=== PATIENT | female | born 1965 | race Caucasian/White ===

== ENCOUNTER 2017-04-22 10:30 | Emergency (ER) | payer MEDICARE, MEDICAID ==
[~2017-04-22] VITALS: Ht 167.6 cm; Wt 50.3 kg
[2017-04-22] MEDS ORDERED: SODIUM CHLORIDE 0.9% 1,000 ML IV ONE (11:14)
[2017-04-22] MEDS ORDERED: SODIUM CHLORIDE FLUSH 10ML SYR IVF ONE (11:30)
[2017-04-22] MEDS ORDERED: SODIUM CHLORIDE 0.9% 1,000ML IVBOLUS ONE (11:30)
[2017-04-22] MEDS ORDERED: ONDANSETRON 2MG/ML, 2ML IVPush ONE (11:30)
[2017-04-22] MEDS ORDERED: ONDANSETRON 2MG/ML, 2ML ONE (11:39)
[2017-04-22 12:08] LABS: BLOOD UREA NITROGEN 18 mg/dL (7-18)
[2017-04-22 12:12] LABS: ASPARTATE AMINO TRANSFERASE 20 U/L (15-37)
[2017-04-22 14:31] VITALS: BP 127/58
[2017-04-22] MEDS ORDERED: OMNIPAQUE 350 MG/ML, 100ML BOTTLE ONE (19:42)
== END 2017-04-22 15:13 | disposition home or self-care (01) ==
LOC: ED 12:52
DX: R10.84 Generalized abdominal pain (principal); R19.7 Diarrhea, unspecified; J01.00 Acute maxillary sinusitis, unspecified
CPT/HCPCS: 36415; 74177; 80053; 81001; 83690; 85025; 87324; 89055; 96361; 96374; 99285; J2405; J7030; Q9967

== ENCOUNTER 2021-04-28 09:40 | Emergency (ER) | payer MEDICAID, MEDICARE ==
[~2021-04-28] VITALS: Ht 167.6 cm; Wt 58.0 kg
--- NOTE | 2021-04-28 10:20 | NUR ---
PT AMBULATORY TO ROOM FROM TRIAGE, CHANGED INTO GOWN. MONITORS IN PLACE. PT C/O N/V/D FOR A COUPLE DAYS
--- NOTE | 2021-04-28 10:35 | NUR ---
ERP AT BS
--- NOTE | 2021-04-28 11:01 | NUR ---
PT AMBULATORY TO BR FOR URINE SAMPLE WITH UPRIGHT STEADY GAIT
[2021-04-28 11:19] LABS: MICROSCOPIC AUTO
[2021-04-28 11:20] VITALS: BP 117/64
--- NOTE | 2021-04-28 12:55 | NUR ---
PT TO CT
--- NOTE | 2021-04-28 13:14 | NUR ---
PT BACK FROM CT
--- NOTE | 2021-04-28 13:41 | NUR ---
CHART UP FOR RECHECK
--- NOTE | 2021-04-28 14:27 | NUR ---
Patient given discharge instructions and they have confirmed that they understand the instructions. Patient ambulatory with steady gait.
== END 2021-04-28 14:28 | disposition home or self-care (01) ==
LOC: ED 12:11
DX: N30.00 Acute cystitis without hematuria (principal); Z20.822 Contact with and (suspected) exposure to COVID-19; B34.9 Viral infection, unspecified; R07.9 Chest pain, unspecified; G89.29 Other chronic pain
CPT/HCPCS: 71045; 74176; 81001; 87086; 99285; U0003; U0005